=== PATIENT | male | born 1945 ===

== ENCOUNTER 2016-10-08 07:51 | Emergency (ER) | payer OTHER ==
[2016-10-08 07:51] VITALS: BMI 30.7
[2016-10-08 08:27] VITALS: RESP 20
[2016-10-08 08:51] LABS: BASO % 0.2 % (0.0-2.0); EOS % 0.4 % (0.0-4.0); HEMATOCRIT 38.3 % (35.0-51.0); LYMPH # 0.9 K/uL (1.0-4.3); LYMPH % 20.3 % (20.0-40.0); MEAN CORPUSCULAR HEMOGLOBIN 32.2 pg (27.0-31.0); MEAN CORPUSCULAR HGB CONC 33.9 g/dL (33.0-37.0); MEAN PLATELET VOLUME 7.3 fL (7.2-11.7); MONO # 0.4 K/uL (0.0-0.8); MONO % 8.1 % (0.0-10.0); RED CELL DISTRIBUTION WIDTH 12.8 % (11.5-14.5); WHITE BLOOD COUNT 4.4 K/uL (4.8-10.8)
[2016-10-08 08:54] LABS: RBC URINE 9 /hpf (0-3); URINE BILIRUBIN NEGATIVE (NEGATIVE); URINE BLOOD 2+ (NEGATIVE); URINE COLOR Yellow (YELLOW); URINE GLUCOSE (UA) NORMAL (Normal); URINE KETONE NEGATIVE (NEGATIVE); URINE LEUKOCYTE ESTERASE TRACE Leu/uL (Negative); URINE PROTEIN NEGATIVE (NEGATIVE); URINE UROBILINOGEN NORMAL mg/dL (0.2-1.0); WBC URINE 6 /hpf (0-5)
[2016-10-08 08:58] LABS: CHLORIDE 102 mmol/L (98-107); POTASSIUM 3.3 mmol/L (3.6-5.2); SODIUM 139 mmol/L (132-148)
[2016-10-08 09:00] LABS: CARBON DIOXIDE 24 mmol/L (22-30); GFR AFRICAN-AMERICAN > 60
--- NOTE | 2016-10-08 09:00 | C.PDOC ---
Time Seen by Provider: 10/08/16 08:19 Chief Complaint (Nursing): Chest Pain Past Medical History Vital Signs: Last Vital Signs Temp 98 F 10/08/16 07:58 Pulse 71 10/08/16 08:45 Resp 20 10/08/16 08:45 BP 129/81 10/08/16 08:45 Pulse Ox 98 10/08/16 08:45 - Medical History PMH: Anemia, Back Problems, Depression, Gastritis, Hypercholesterolemia, Pancreatitis Denies: Chronic Kidney Disease Surgical History: Back Surgery - [facility] Procedures VACCINATION NEC (08/17/14) Family History: States: Unknown Family Hx - Social History Hx Tobacco Use: No Hx Alcohol Use: No Hx Substance Use: No - Immunization History Hx Tetanus Toxoid Vaccination: Yes Hx Influenza Vaccination: Yes (2015) Hx Pneumococcal Vaccination: No ED Course And Treatment - Laboratory Results Result Diagrams: 10/08/16 08:44 10/08/16 08:44 O2 Sat by Pulse Oximetry: 98 Medical Decision Making Medical Decision Making: Impression: 71 y.o male with right sided chest pain, h/o PE Plan: * Labs * EKG * CT Chest Progress:
[2016-10-08 09:01] LABS: ALB/GLOB RATIO 1.5 (1.0-2.1); ALKALINE PHOSPHATASE 77 U/L (38-126); ALT/SGPT 21 U/L (21-72); AST/SGOT 16 U/L (17-59); BLOOD UREA NITROGEN 13 mg/dL (9-20); CALCIUM 7.6 mg/dl (8.6-10.4); GLUCOSE,RANDOM 100 mg/dL (75-110); TOTAL PROTEIN 6.7 g/dL (6.3-8.3)
--- NOTE | 2016-10-08 09:01 | C.PDOC ---
History Of Present Illness 71-year-old male, PMHx includes Pulmonary Embolism (04/2016), presents to the emergency department with complaints of chest pain. Patient states he has been experiencing right-sided chest pain x2 weeks. Pain is intermittent in nature and non-radiating, described as a "pressure-like" sensation. Patient states he was seen by his PMD, who sent patient for a CT scan, but pt did not follow-up. He denies shortness of breath, nausea/vomiting, dizziness, fevers, chills, arm pain, numbness/weakness, or any other associated symptoms. No other complaints at this time. PMD Vivek Jin MD. Time Seen by Provider: 10/08/16 08:19 Chief Complaint (Nursing): Chest Pain History Per: Patient History/Exam Limitations: no limitations Onset/Duration Of Symptoms: Days Current Symptoms Are (Timing): Still Present Severity: Moderate Quality: Pressure Past Medical History Reviewed: Historical Data, Nursing Documentation, Vital Signs Vital Signs: Last Vital Signs Temp 97.7 F 10/08/16 11:58 Pulse 76 10/08/16 11:58 Resp 20 10/08/16 11:58 BP 138/74 10/08/16 11:58 Pulse Ox 98 10/08/16 19:05 - Medical History PMH: Anemia, Back Problems, Depression, Gastritis, Hypercholesterolemia, Pancreatitis Denies: Chronic Kidney Disease Surgical History: Back Surgery - [facility] Procedures VACCINATION NEC (08/17/14) Family History: States: No Known Family Hx - Social History Hx Tobacco Use: No Hx Alcohol Use: No Hx Substance Use: No - Immunization History Hx Tetanus Toxoid Vaccination: Yes Hx Influenza Vaccination: Yes (2015) Hx Pneumococcal Vaccination: No Review Of Systems Except As Marked, All Systems Reviewed And Found Negative. Constitutional: Negative for: Fever, Chills Cardiovascular: Positive for: Chest Pain. Negative for: Palpitations Respiratory: Negative for: Shortness of Breath Gastrointestinal: Negative for: Nausea, Vomiting Musculoskeletal: Negative for: Neck Pain, Arm Pain, Back Pain Neurological: Negative for: Weakness, Numbness Physical Exam - Physical Exam Appears: Non-toxic, No Acute Distress Skin: Warm, Dry, No Rash Head: Atraumatic, Normacephalic Eye(s): bilateral: Normal Inspection, PERRL, EOMI Nose: Normal Oral Mucosa: Moist Lips: Normal Appearing Neck: Normal ROM Chest: Symmetrical Cardiovascular: Rhythm Regular, No Murmur Respiratory: Normal Breath Sounds, No Accessory Muscle Use Extremity: Bilateral: Atraumatic, No Pedal Edema, Normal Color And Temperature, Normal ROM Neurological/Psych: Oriented x3, Normal Speech ED Course And Treatment - Laboratory Results Result Diagrams: 10/08/16 08:44 10/08/16 08:44 Lab Interpretation: No Acute Changes ECG: Interpreted By Me, Viewed By Me ECG Rhythm: Sinus Rhythm ECG Interpretation: No Acute Changes Rate From EC O2 Sat by Pulse Oximetry: 98 (on Room Air) - CT Scan/US CT HEAD Other Rad Studies (CT/US): Read By Radiologist, Radiology Report Reviewed CT/US Interpretation: Accession No. : [id number]. Patient Name / ID : LORRI MELENDEZ / [id number]. Exam Date : 10/08/2016 10:02:19 ( Approved ). Study Comment : Sex / Age : M / 71Y. Creator : González Barraza. Dictator : González Barraza. Chemical Engineering Technologist : [employer] Head : González Barraza. Approver2 : Report Date : 10/08 11:11:57. My Comment : . PROCEDURE: CT Chest with contrast ( Pulmonary Angiogram). HISTORY: right sided chest pain,sob. COMPARISON: 05/12. TECHNIQUE: Axial computed tomography images were obtained of the chest in the pulmonary arterial phase of enhancement. Coronal and sagittal reformatted images were created and reviewed. Intravenous contrast dose: 100 cc visipaque. Radiation dose: Total exam DLP = 505 mGy-cm. This CT exam was performed using one or more of the following dose reduction techniques: Automated exposure control, adjustment of the mA and/or kV according to patient size, and/or use of iterative reconstruction technique. FINDINGS: PULMONARY ARTERIES: There appears to be resolution of previously identified small peripheral subsegmental pulmonary emboli from the prior examination. No appreciable new central pulmonary artery thrombus is noted. There is some mild artifact identified in the left lower lobe, although note appreciable peripheral or subsegmental pulmonary artery thrombus is noted. AORTA: No interval change from prior examination. LUNGS: No new pulmonary infiltrate is seen. Mild subsegmental atelectasis and scarring is once again identified. No appreciable lung nodule is noted. PLEURAL SPACES: Unremarkable. No effusion or pneuomothorax. HEART: Unremarkable. No cardiomegaly. No significant pericardial effusion. LYMPH NODES: No lymphadenopathy. BONES, CHEST WALL: Stable. No new compression fracture is noted. OTHER FINDINGS: Images of the upper abdomen are also unchanged with stable small low-density cyst seen in the liver. Visualized esophagus is unremarkable. Visualized stomach, duodenum, pancreas, and adrenal glands are within normal limits, as well as the kidneys. IMPRESSION: No CT scan evidence of pulmonary embolism with resolution of previously identified small subsegmental peripheral pulmonary emboli. No new infiltrate seen. Medical Decision Making Medical Decision Making: Impression: 71y/o M, PMHx of PE, comes in w/ right chest pain x2 weeks Prior records reviewed, patient was admitted on 05/12/[address] Chest showed small peripheral pulmonary emboli more prominent on the right side, mild cardiomegaly, no evidence of acute pulmonary disease otherwise Plan: * CT Chest * EKG * BNP, CMP, Trop I * CBC, D-Dimer, PTT/PT * Urinalysis Dr Jin paged at 1120 Progress: Reassess: Labs reviewed. CT chest angio showed no PE. [address] Jin who states with negative CT angio, patient can be discharged and follow up in office. Patient remained afebrile and hemodynamically stable during ED evaluation. Discussed results and plan for discharge and follow up instructions. Disposition - Disposition Referrals: Vivek Jin MD [Medical Doctor] - Disposition: HOME/ ROUTINE Disposition Time: 12:00 Condition: STABLE Additional Instructions: Seguimiento con dyer mdico de ambar Jin en la oficina la prxima semana ms evaluacin. Contine tomando allan medicamentos usuales. Regrese al servicio de urgencias en cualquier momento si los sntomas persisten o empeoran. Instructions: Chest Pain (ED) Print Language: ITALIAN - POA Present On Arrival: None - Clinical Impression Clinical Impression: Pleuritic pain - Scribe Statement The provider has reviewed the documentation as recorded by the Scribe (Izzy Mcnally) All medical record entries made by the Scribe were at my direction and personally dictated by me. I have reviewed the chart and agree that the record accurately reflects my personal performance of the history, physical exam, medical decision making, and the department course for this patient. I have also personally directed, reviewed, and agree with the discharge instructions and disposition.
[2016-10-08 09:20] LABS: INR 1.8
[2016-10-08] MEDS ORDERED: Iodixanol 320 mg/ml 150 ml Bottle IV ONE (09:30)
--- NOTE | 2016-10-08 11:13 | CT ---
PROCEDURE: CT Chest with contrast (Pulmonary Angiogram) HISTORY: right sided chest pain,sob COMPARISON: 05/12/2016 TECHNIQUE: Axial computed tomography images were obtained of the chest in the pulmonary arterial phase of enhancement. Coronal and sagittal reformatted images were created and reviewed. Intravenous contrast dose: 100 cc visipaque. Radiation dose: Total exam DLP = 505 mGy-cm. This CT exam was performed using one or more of the following dose reduction techniques: Automated exposure control, adjustment of the mA and/or kV according to patient size, and/or use of iterative reconstruction technique. FINDINGS: PULMONARY ARTERIES: There appears to be resolution of previously identified small peripheral subsegmental pulmonary emboli from the prior examination. No appreciable new central pulmonary artery thrombus is noted. There is some mild artifact identified in the left lower lobe, although note appreciable peripheral or subsegmental pulmonary artery thrombus is noted. AORTA: No interval change from prior examination LUNGS: No new pulmonary infiltrate is seen. Mild subsegmental atelectasis and scarring is once again identified. No appreciable lung nodule is noted. PLEURAL SPACES: Unremarkable. No effusion or pneuomothorax. HEART: Unremarkable. No cardiomegaly. No significant pericardial effusion. LYMPH NODES: No lymphadenopathy. BONES, CHEST WALL: Stable. No new compression fracture is noted. OTHER FINDINGS: Images of the upper abdomen are also unchanged with stable small low-density cyst seen in the liver. Visualized esophagus is unremarkable. Visualized stomach, duodenum, pancreas, and adrenal glands are within normal limits, as well as the kidneys. IMPRESSION: No CT scan evidence of pulmonary embolism with resolution of previously identified small subsegmental peripheral pulmonary emboli. No new infiltrate seen.
[2016-10-08 11:59] VITALS: BP 138/74; PULSE 76; TEMP 97.7
[2016-10-08 19:05] VITALS: O2SAT 98
== END 2016-10-08 12:03 | disposition home or self-care (01) ==
LOC: C.ER 07:51
DX: R07.81 Pleurodynia (principal); E78.00 Pure hypercholesterolemia, unspecified
CPT/HCPCS: 71275; 80053; 81001; 83880; 84484; 85025; 85378; 85610; 85730; 99285; Q9965

== ENCOUNTER 2016-10-27 13:45 | Inpatient (IN) | payer OTHER ==
[2016-10-27 13:45] VITALS: BMI 30.7
[2016-10-27] MEDS ORDERED: Sodium Chloride 0.9% 1,000 ML IV ONE (13:58)
[2016-10-27] MEDS ORDERED: Sodium Chloride 0.9% 1,000 ML ONE (14:11)
[2016-10-27 14:20] LABS: MONO # 0.2 K/uL (0.0-0.8); NEUT # 3.1 K/uL (1.8-7.0); RBC 3.8 Mil/uL (4.40-5.90)
--- NOTE | 2016-10-27 14:22 | C.PDOC ---
History Of Present Illness 71 year old male presents to the ED with complaints of "room-spinning" dizziness x 1 week. Notes it is exacerbated by movement and sitting up. No trauma. No SOB. No chest pain. No h/o vertigo. Patient denies any nausea, vomiting, fever, or headache. COmplaint with chronic medication, no new medication. Time Seen by Provider: 10/27/16 13:51 Chief Complaint (Nursing): Dizziness/Lightheaded History Per: Patient History/Exam Limitations: clinical condition Onset/Duration Of Symptoms: Days Current Symptoms Are (Timing): Still Present Activity At Onset Of Symptoms: Walking, Other (when sitting up ) Fall Associated With With Symptoms: No Recent travel outside of the [place]: No Past Medical History Reviewed: Historical Data, Nursing Documentation, Vital Signs Vital Signs: Last Vital Signs Temp 98.2 F 10/27/16 13:53 Pulse 64 10/27/16 17:30 Resp 12 10/27/16 17:30 BP 125/79 10/27/16 17:30 Pulse Ox 97 10/27/16 17:40 - Medical History PMH: Anemia, Back Problems, Depression, Gastritis, Hypercholesterolemia, Pancreatitis Surgical History: Back Surgery - [facility] Procedures VACCINATION NEC (08/17/14) Family History: States: Unknown Family Hx - Social History Hx Tobacco Use: No Hx Alcohol Use: No Hx Substance Use: No - Immunization History Hx Tetanus Toxoid Vaccination: Yes Hx Influenza Vaccination: Yes (2016) Hx Pneumococcal Vaccination: No Review Of Systems Constitutional: Negative for: Fever, Chills Cardiovascular: Negative for: Chest Pain, Palpitations Gastrointestinal: Positive for: Abdominal Pain. Negative for: Nausea, Vomiting , Diarrhea Neurological: Positive for: Dizziness Physical Exam - Physical Exam Appears: Non-toxic, No Acute Distress Skin: Warm, Dry Head: Atraumatic, Normacephalic Eye(s): bilateral: Normal Inspection, PERRL, EOMI, Other (no nystagmus) Nose: Normal Oral Mucosa: Moist Neck: Normal ROM, Supple Chest: Symmetrical, No Deformity Cardiovascular: Rhythm Regular Respiratory: Normal Breath Sounds, No Rhonchi, No Wheezing Gastrointestinal/Abdominal: Soft, No Tenderness, No Distention, No Guarding, No Rebound Extremity: Normal ROM, No Tenderness, No Pedal Edema Neurological/Psych: Oriented x3, Normal Speech, Normal Cognition, Normal Cranial Nerves, Normal Motor, Normal Sensation, Other (no focal deficits) Gait: Steady ED Course And Treatment - Laboratory Results Result Diagrams: 10/27/16 14:06 10/27/16 14:06 ECG: Interpreted By Me, Viewed By Me ECG Rhythm: Sinus Rhythm ECG Interpretation: No Acute Changes Rate From EC (bpm) O2 Sat by Pulse Oximetry: 97 (room air ) Pulse Ox Interpretation: Normal - CT Scan/US Head CT Other Rad Studies (CT/US): Read By Radiologist, Radiology Report Reviewed CT/US Interpretation: FINDINGS: HEMORRHAGE: No intracranial hemorrhage. BRAIN : No mass effect or edema. Scattered focal lucencies in the subcortical and periventricular white matter suggestive for chronic microvascular ischemic change. Punctate left basal ganglia calcification. Mild patchy low attenuation within the anterior right temporal lobe, nonspecific, possibly representing chronic microvascular ischemic change. Clinical correlation. VENTRICLES: Unremarkable. No hydrocephalus. CALVARIUM: Unremarkable. PARANASAL SINUSES: Unremarkable as visualized. No significant inflammatory changes. MASTOID AIR CELLS: Unremarkable as visualized. No inflammatory changes. OTHER FINDINGS: None. IMPRESSION: Chronic microvascular ischemic change. Question mild patchy low attenuation within the anterior right temporal lobe, nonspecific, possibly representing chronic microvascular ischemic change. Clinical correlation. If focal neurologic deficit persists, consider MRI. Progress Note: Patient was given IV fluids and antivert. On re-evaluation, pt ntoes dizziness persists. Notes he drank coffee with two crackers today, no breakfast or lunch.Pt noted to be orthostatic. CAse discussed with Dr Rodriguez, agreed upon admission . Reevaluation Time: 15:02 Reassessment Condition: Improved Disposition - Disposition Disposition: HOME/ ROUTINE Disposition Time: 16:00 Condition: STABLE - Clinical Impression Clinical Impression: Dizziness - Scribe Statement The provider has reviewed the documentation as recorded by the Scribe Maureen Abernathy All medical record entries made by the Getibconnie were at my direction and personally dictated by me. I have reviewed the chart and agree that the record accurately reflects my personal performance of the history, physical exam, medical decision making, and the department course for this patient. I have also personally directed, reviewed, and agree with the discharge instructions and disposition.
[2016-10-27 14:24] LABS: BASO % 1.1 % (0.0-2.0); EOS % 0.2 % (0.0-4.0); HEMOGLOBIN 12.3 g/dL (12.0-18.0); LYMPH # 0.5 K/uL (1.0-4.3); LYMPH % 12.1 % (20.0-40.0); MEAN CELL VOLUME 95.1 fL (80.0-94.0); MEAN CORPUSCULAR HEMOGLOBIN 32.3 pg (27.0-31.0); MEAN CORPUSCULAR HGB CONC 33.9 g/dL (33.0-37.0); MEAN PLATELET VOLUME 7.3 fL (7.2-11.7); MONO % 5.6 % (0.0-10.0); NRBC % 0.1 % (0.0-2.0); RED CELL DISTRIBUTION WIDTH 12.7 % (11.5-14.5); WHITE BLOOD COUNT 3.8 K/uL (4.8-10.8)
[2016-10-27 14:27] LABS: ALBUMIN 3.7 g/dL (3.5-5.0)
[2016-10-27 14:30] LABS: ALB/GLOB RATIO 1.2 (1.0-2.1); ALT/SGPT 29 U/L (21-72); AST/SGOT 23 U/L (17-59); BLOOD UREA NITROGEN 13 mg/dL (9-20); GFR AFRICAN-AMERICAN > 60; GFR NON-AFRICAN AMERICAN > 60
[2016-10-27 14:31] LABS: CALCIUM 8.8 mg/dl (8.6-10.4)
[2016-10-27 14:38] LABS: CK-MB 0.75 ng/mL (0.0-3.38)
--- NOTE | 2016-10-27 14:56 | CT ---
PROCEDURE: CT HEAD WITHOUT CONTRAST. HISTORY: R/O Bleed. Headache. COMPARISON: None available. TECHNIQUE: Axial computed tomography images were obtained through the head/brain without intravenous contrast. Radiation dose: Total exam DLP = 904 mGy-cm. This CT exam was performed using one or more of the following dose reduction techniques: Automated exposure control, adjustment of the mA and/or kV according to patient size, and/or use of iterative reconstruction technique. FINDINGS: HEMORRHAGE: No intracranial hemorrhage. BRAIN: No mass effect or edema. Scattered focal lucencies in the subcortical and periventricular white matter suggestive for chronic microvascular ischemic change. Punctate left basal ganglia calcification. Mild patchy low attenuation within the anterior right temporal lobe, nonspecific, possibly representing chronic microvascular ischemic change. Clinical correlation. VENTRICLES: Unremarkable. No hydrocephalus. CALVARIUM: Unremarkable. PARANASAL SINUSES: Unremarkable as visualized. No significant inflammatory changes. MASTOID AIR CELLS: Unremarkable as visualized. No inflammatory changes. OTHER FINDINGS: None. IMPRESSION: Chronic microvascular ischemic change. Question mild patchy low attenuation within the anterior right temporal lobe, nonspecific, possibly representing chronic microvascular ischemic change. Clinical correlation. If focal neurologic deficit persists, consider MRI.
[2016-10-27 16:11] LABS: URINE BILIRUBIN NEGATIVE (NEGATIVE); URINE BLOOD 1+ (NEGATIVE); URINE CLARITY Clear (Clear); URINE COLOR Straw (YELLOW); URINE GLUCOSE (UA) NORMAL (Normal); URINE LEUKOCYTE ESTERASE NEG Leu/uL (Negative); URINE NITRATE NEGATIVE (NEGATIVE); URINE PROTEIN NEGATIVE (NEGATIVE); URINE UROBILINOGEN NORMAL mg/dL (0.2-1.0)
--- NOTE | 2016-10-27 16:26 | RAD ---
PROCEDURE: CHEST RADIOGRAPH, 1 VIEW HISTORY: Shortness of breath COMPARISON: None available. FINDINGS: LUNGS: Mild venous congestion. Right hilar prominence. Mild patchy bibasilar airspace opacities. Biapical pleural thickening with upper lobe granulomatous changes. PLEURA: No pneumothorax or pleural fluid seen. CARDIOVASCULAR: Normal. OSSEOUS STRUCTURES: Degenerative changes in the spine and shoulders. VISUALIZED UPPER ABDOMEN: Normal. OTHER FINDINGS: None. IMPRESSION: Mild venous congestion. Right hilar prominence. Mild patchy bibasilar airspace opacities. Biapical pleural thickening with upper lobe granulomatous changes.
--- NOTE | 2016-10-27 21:03 | CP.PCM.HP ---
Past Patient History - Infectious Disease Hx of Infectious Diseases: None - Tetanus Immunizations Tetanus Immunization: Unknown - Past Medical History & Family History Past Medical History?: Yes - Past Social History Smoking Status: Never Smoked - CARDIAC Hx Cardiac Disorders: Yes Hx Hypercholesterolemia: Yes - PULMONARY Hx Respiratory Disorders: No - NEUROLOGICAL Hx Neurological Disorder: No - HEENT Hx HEENT Problems: No - RENAL Hx Chronic Kidney Disease: No - ENDOCRINE/METABOLIC Hx Endocrine Disorders: No - HEMATOLOGICAL/ONCOLOGICAL Hx Anemia: Yes - INTEGUMENTARY Hx Dermatological Problems: Yes Other/Comment: coagulopathy - MUSCULOSKELETAL/RHEUMATOLOGICAL Hx Musculoskeletal Disorders: Yes Hx Falls: No Other/Comment: bilateral foot surgery/degenerative joint disease. - GASTROINTESTINAL Hx Gastrointestinal Disorders: Yes Hx Gastritis: Yes Hx Pancreatitis: Yes - GENITOURINARY/GYNECOLOGICAL Hx Genitourinary Disorders: Yes Hx Prostate Problems: Yes - PSYCHIATRIC Hx Psychophysiologic Disorder: Yes Hx Depression: Yes Hx Substance Use: No - SURGICAL HISTORY Hx Surgeries: Yes Other/Comment: bilateral foot - ANESTHESIA Hx Anesthesia: Yes Hx Anesthesia Reactions: No Hx Malignant Hyperthermia: No Meds Home Medications: Home Medication List Medication Instructions Recorded Confirmed Type Meclizine [Meclizine*] 25 mg PO BID #14 tab 10/27/16 Rx Allergies/Adverse Reactions: Allergies Allergy/AdvReac Type Severity Reaction Status Date / Time No Known Allergies Allergy Verified 10/27/16 13:50 Physical Exam - Constitutional Appears: Well - Head Exam Head Exam: ATRAUMATIC, NORMAL INSPECTION, NORMOCEPHALIC - Eye Exam Eye Exam: EOMI, Normal appearance, PERRL Pupil Exam: NORMAL ACCOMODATION, PERRL - ENT Exam ENT Exam: Mucous Membranes Moist, Normal Exam - Neck Exam Neck exam: Positive for: Normal Inspection - Respiratory Exam Respiratory Exam: Decreased Breath Sounds - Cardiovascular Exam Cardiovascular Exam: REGULAR RHYTHM, +S1, +S2 - GI/Abdominal Exam GI & Abdominal Exam: Diminished Bowel Sounds, Soft - Rectal Exam Rectal Exam: Deferred Results - Vital Signs Recent Vital Signs: Last Vital Signs Temp 98.2 F 10/27/16 18:55 Pulse 71 10/27/16 18:58 Resp 16 10/27/16 18:55 BP 156/83 H 10/27/16 18:55 Pulse Ox 99 10/27/16 18:55 - Labs Result Diagrams: 10/27/16 14:06 07/09/17 14:06 Labs: Laboratory Results - last 24 hr 10/27/16 16:00 Urine Color Straw Urine Clarity Clear Urine pH 7.0 Ur Specific [place] 1.006 Urine Protein Negative Urine Glucose (UA) Normal Urine Ketones Negative Urine Blood 1+ H Urine Nitrate Negative Urine Bilirubin Negative Urine Urobilinogen Normal Ur Leukocyte Esterase Neg Urine WBC (Auto) < 1 Urine RBC (Auto) 2
--- NOTE | 2016-10-28 00:54 | CP.PCM.CON ---
History of Present Illness - History of Present Illness History of Present Illness: Mr. Suarez is a 71-year-old male with past medical history significant for benign prostatic hypertrophy for which he has been followed by his urologist Dr. Gallagher and is on Flomax. Patient also has history of dyslipidemia along with pulmonary embolism which was diagnosed 6 months ago for which he has been on Xarelto. He has chronic right-sided chest pain since the diagnosis of pulmonary embolism along with dyspnea on exertion. At baseline he has NYHA functional class II dyspnea but has limited mobility secondary to issues with balance and had surgery of the feet. He now presents on this presentation with complaints of having difficulty with walking accompanied with dizziness and lightheadedness and not keeping track when he walks. Review of Systems - Constitutional Constitutional: Fatigue, Lethargy, Malaise - EENT Eyes: As Per HPI Ears: As Per HPI Nose/Mouth/Throat: As Per HPI - Cardiovascular Cardiovascular: Chest Pain with Activity, Dyspnea, Dyspnea on Exertion - Respiratory Respiratory: Dyspnea on Exertion - Genitourinary Genitourinary: Change in Urinary Stream, Difficulty Urinating, Urinary Frequency - Musculoskeletal Musculoskeletal: Abnormal Gait, Arthralgias - Neurological Neurological: Abnormal Gait, Dizziness, Lack of Coordination Past Patient History - Infectious Disease Hx of Infectious Diseases: None - Tetanus Immunizations Tetanus Immunization: Unknown - Past Medical History & Family History Past Medical History?: Yes - Past Social History Smoking Status: Never Smoked Chewing Tobacco Use: No Cigar Use: No Alcohol: Occasional Drugs: Denies Home Situation {Lives}: Alone - CARDIAC Hx Cardiac Disorders: Yes Hx Hypercholesterolemia: Yes - PULMONARY Hx Respiratory Disorders: No Other/Comment: Pulmonary embolism - NEUROLOGICAL Hx Neurological Disorder: No - HEENT Hx HEENT Problems: No - RENAL Hx Chronic Kidney Disease: No - ENDOCRINE/METABOLIC Hx Endocrine Disorders: No - HEMATOLOGICAL/ONCOLOGICAL Hx Anemia: Yes - INTEGUMENTARY Hx Dermatological Problems: Yes Other/Comment: coagulopathy - MUSCULOSKELETAL/RHEUMATOLOGICAL Hx Musculoskeletal Disorders: Yes Hx Falls: No Other/Comment: bilateral foot surgery/degenerative joint disease. - GASTROINTESTINAL Hx Gastrointestinal Disorders: Yes Hx Gastritis: Yes Hx Pancreatitis: Yes - GENITOURINARY/GYNECOLOGICAL Hx Genitourinary Disorders: Yes Hx Prostate Problems: Yes - PSYCHIATRIC Hx Psychophysiologic Disorder: Yes Hx Depression: Yes Hx Substance Use: No - SURGICAL HISTORY Hx Surgeries: Yes Other/Comment: bilateral foot - ANESTHESIA Hx Anesthesia: Yes Hx Anesthesia Reactions: No Hx Malignant Hyperthermia: No Meds Home Medications: Home Medication List Medication Instructions Recorded Confirmed Type Meclizine [Meclizine*] 25 mg PO BID #14 tab 10/27/16 Rx Allergies/Adverse Reactions: Allergies Allergy/AdvReac Type Severity Reaction Status Date / Time No Known Allergies Allergy Verified 10/27/16 13:50 - Medications Medications: Current Medications Aspirin (Ecotrin) 81 mg PO DAILY [facility] Famotidine (Pepcid) 40 mg PO DAILY [facility] Ferrous Sulfate (Feosol) 325 mg PO DAILY [facility] Rivaroxaban (Xarelto) 20 mg PO DAILY [facility] Rosuvastatin Calcium (Crestor) 10 mg PO HS [facility] Last Admin: 10/27/16 22:15 Dose: 10 mg Tamsulosin HCl (Flomax) 0.4 mg PO DAILY [facility] Physical Exam - Constitutional Appears: Well, No Acute Distress - Head Exam Head Exam: ATRAUMATIC, NORMAL INSPECTION, NORMOCEPHALIC - Eye Exam Eye Exam: EOMI, Normal appearance, PERRL Pupil Exam: NORMAL ACCOMODATION, PERRL - ENT Exam ENT Exam: Mucous Membranes Moist, Normal Exam - Neck Exam Neck exam: Positive for: Normal Inspection - Respiratory Exam Respiratory Exam: Clear to Auscultation Bilateral, NORMAL BREATHING PATTERN - Cardiovascular Exam Cardiovascular Exam: REGULAR RHYTHM, +S1, +S2, Systolic Murmur - GI/Abdominal Exam GI & Abdominal Exam: Normal Bowel Sounds, Soft - Rectal Exam Rectal Exam: Deferred - Extremities Exam Extremities exam: Positive for: normal inspection - Back Exam Back exam: NORMAL INSPECTION - Neurological Exam Neurological exam: Abnormal Gait, Alert, CN II-XII Intact, Oriented x3 - Psychiatric Exam Psychiatric exam: Normal Affect, Normal Mood - Skin Skin Exam: Intact, Normal Color Results - Vital Signs Recent Vital Signs: Last Vital Signs Temp 98.2 F 10/27/16 18:55 Pulse 71 10/27/16 18:58 Resp 16 10/27/16 18:55 BP 156/83 H 10/27/16 18:55 Pulse Ox 99 10/27/16 18:55 - Labs Result Diagrams: 10/27/16 14:06 10/27/16 14:06 Labs: Laboratory Results - last 24 hr 10/27/16 16:00 Urine Color Straw Urine Clarity Clear Urine pH 7.0 Ur Specific Dewitt 1.006 Urine Protein Negative Urine Glucose (UA) Normal Urine Ketones Negative Urine Blood 1+ H Urine Nitrate Negative Urine Bilirubin Negative Urine Urobilinogen Normal Ur Leukocyte Esterase Neg Urine WBC (Auto) < 1 Urine RBC (Auto) 2 Assessment & Plan (1) Dizziness Assessment and Plan: Etiology of dizziness question secondary to underlying acute CVA in the posterior circulation. Will need MRI of the brain to rule out any acute CVA. Will check carotid duplex and echocardiogram. Continue to monitor patient on telemetry for 24 hours. Keep the patient on aspirin and statins. Status: Acute (2) Chest pain Assessment and Plan: Chest pain most likely pleuritic in nature from prior pulmonary embolism. Patient is 71-year-old male with hyperlipidemia cannot exclude underlying CAD. Does have dyspnea on exertion at baseline. Will review echocardiogram. Will need further ischemic evaluation which can be done as outpatient. Continue to rule out ACS with serial enzymes and monitor patient on telemetry keep the patient on aspirin and statins. Status: Acute (3) Pulmonary embolism Assessment and Plan: History of pulmonary embolism 6 months ago. Etiology unclear will need workup for secondary causes. Continue the patient on Xarelto for the time being. May consider evaluation with GI for rule out underlying malignancy as the etiology of his pulmonary embolism. Status: Acute (4) Dyslipidemia Assessment and Plan: Would recommend to check fasting lipid profile. Continue patient on statin therapy. Further titration based on the results of the fasting lipid profile. Status: Acute
--- NOTE | 2016-10-28 07:44 | PCM.URO ---
Urology Progress Note - Objective Lab Results Last 24 Hours: Laboratory Results - last 24 hr 10/27/16 16:00 Urine Color Straw Urine Clarity Clear Urine pH 7.0 Ur Specific Dalton 1.006 Urine Protein Negative Urine Glucose (UA) Normal Urine Ketones Negative Urine Blood 1+ H Urine Nitrate Negative Urine Bilirubin Negative Urine Urobilinogen Normal Ur Leukocyte Esterase Neg Urine WBC (Auto) < 1 Urine RBC (Auto) 2 Intake & Output: Intake & Output 10/27/16 10/28/16 10/28/16 18:59 06:59 18:59 Intake Total 240 Balance 240 Intake: Oral 240 Other: Voiding Method Toilet # Voids Urine, Voided 1 Vital Signs: Vital Signs - 24 hr 10/27/16 10/27/16 10/27/16 17:30 18:16 18:23 Temperature 98.1 F Pulse Rate 64 83 Pulse Rate [ Bilateral * Pedal & Posterior Tibial] Respiratory 12 20 Rate Blood Pressure 125/79 140/77 O2 Sat by Pulse 98 97 99 Oximetry 10/27/16 10/27/16 10/27/16 18:55 18:58 23:25 Temperature 98.2 F 98.3 F Pulse Rate 71 52 L Pulse Rate [ 71 Bilateral * Pedal & Posterior Tibial] Respiratory 16 20 Rate Blood Pressure 156/83 H 127/73 O2 Sat by Pulse 99 97 Oximetry 10/28/16 10/28/16 01:00 04:00 Temperature Pulse Rate 53 L 54 L Pulse Rate [ Bilateral * Pedal & Posterior Tibial] Respiratory Rate Blood Pressure O2 Sat by Pulse Oximetry
[2016-10-28 10:46] LABS: HEMOGLOBIN 12.4 g/dL (12.0-18.0); MEAN CELL VOLUME 96.3 fL (80.0-94.0); MEAN CORPUSCULAR HEMOGLOBIN 32.2 pg (27.0-31.0); MEAN CORPUSCULAR HGB CONC 33.4 g/dL (33.0-37.0); RBC 3.86 Mil/uL (4.40-5.90); RED CELL DISTRIBUTION WIDTH 12.5 % (11.5-14.5); WHITE BLOOD COUNT 4.1 K/uL (4.8-10.8)
[2016-10-28 10:56] LABS: BLOOD UREA NITROGEN 10 mg/dL (9-20); GFR AFRICAN-AMERICAN > 60; GFR NON-AFRICAN AMERICAN > 60
[2016-10-28 10:57] LABS: CALCIUM 8.7 mg/dl (8.6-10.4); HDL CHOLESTEROL 43 mg/dL (30-70); MAGNESIUM 2.1 mg/dL (1.6-2.3)
[2016-10-28 11:08] LABS: CK-MB 0.43 ng/mL (0.0-3.38); LDL CHOLESTEROL 96 mg/dL (0-129)
--- NOTE | 2016-10-28 14:41 | CP.PCM.PN ---
Subjective - Date & Time of Evaluation Date of Evaluation: 10/28/16 Time of Evaluation: 14:33 - Subjective Subjective: PGY2 progress note for Dr. Rodriguez Pt is seen and examined at bedside. No acute events overnight. Patient denies having any dizziness, CP, SOB, abd pain, N/V/D/C. Patient states that he is ambulating to bathroom without difficulty and without getting dizzy. 12 point ROS are negative except for the above mentioned. Objective - Vital Signs/Intake and Output Vital Signs (last 24 hours): Temp Pulse Resp BP Pulse Ox 97.6 F 96 H 18 129/74 99 10/28/16 09:11 10/28/16 12:00 10/28/16 09:11 10/28/16 09:11 10/28/16 09:11 Intake and Output: 10/28/16 10/28/16 06:59 18:59 Intake Total 240 Balance 240 - Medications Medications: Current Medications Aspirin (Ecotrin) 81 mg PO DAILY [facility] Last Admin: 10/28/16 10:26 Dose: 81 mg Famotidine (Pepcid) 40 mg PO DAILY [facility] Last Admin: 10/28/16 10:26 Dose: 40 mg Ferrous Sulfate (Feosol) 325 mg PO DAILY [facility] Last Admin: 10/28/16 10:26 Dose: 325 mg Rivaroxaban (Xarelto) 20 mg PO DAILY [facility] Last Admin: 10/28/16 10:26 Dose: 20 mg Rosuvastatin Calcium (Crestor) 10 mg PO HS [facility] Last Admin: 10/27/16 22:15 Dose: 10 mg Tamsulosin HCl (Flomax) 0.4 mg PO DAILY [facility] Last Admin: 10/28/16 10:26 Dose: 0.4 mg - Labs Labs: 10/28/16 10:42 10/28/16 10:42 - Constitutional Appears: Non-toxic, No Acute Distress - Head Exam Head Exam: ATRAUMATIC - ENT Exam ENT Exam: Mucous Membranes Moist - Respiratory Exam Respiratory Exam: Clear to Ausculation Bilateral. absent: Accessory Muscle Use , Rhonchi, Wheezes, Respiratory Distress - Cardiovascular Exam Cardiovascular Exam: REGULAR RHYTHM, +S1, +S2. absent: Gallop, Rubs, Murmur - GI/Abdominal Exam GI & Abdominal Exam: Soft, Normal Bowel Sounds. absent: Distended, Firm, Guarding, Rigid, Tenderness, Organomegaly - Extremities Exam Extremities Exam: absent: Pedal Edema, Tenderness - Neurological Exam Neurological Exam: Alert, Awake, Oriented x3 - Psychiatric Exam Psychiatric exam: Normal Affect, Normal Mood - Skin Skin Exam: Dry, Intact, Normal Color, Warm Assessment and Plan - Assessment and Plan (Free Text) Assessment: 71 year old male with past medical history of BPH on flomax, HLD, PE diagnosed 6 months ago on Xeralto is admitted for vertigo ("room spinning sensation"). CT of head on admission was negative. Blood work on admission was overall normal. Dizziness - Neurology, Dr. Loco is consulted. Recommend MRI of brain - MRI of brain is done, results are pending - Carotid US and echo done, results pending. Preliminary echo result showed EF of 76% - Physical therapy consulted HLD - Continue Crestor 10 mg po HS History of PE - Continue Xeralto 20 mg po HS BPH -Continue Flomax -Urologist, Dr. Gallagher is consulted Case discussed with attending, Dr. Rodriguez
--- NOTE | 2016-10-28 15:37 | MRI ---
PROCEDURE: MRI BRAIN WITHOUT CONTRAST HISTORY: vertigo COMPARISON: Comparison made with prior CT scan of the brain dated 10/27/2016 TECHNIQUE: Multiplanar, multisequence MR images of the brain were obtained without intravenous contrast enhancement. FINDINGS: HEMORRHAGE: No acute parenchymal, subarachnoid or extra-axial hemorrhage. No evidence of hemosiderin deposition identified on gradient echo weighted sequence. DWI: No evidence of an acute or early subacute infarction seen on diffusion imaging. BRAIN PARENCHYMA: Mild diffuse/ confluent chronic white matter ischemic changes seen extending peripherally into the deep and subcortical white matter both cerebral hemispheres. Multiple more discrete chronic appearing lacunar type infarcts scattered about the deep and subcortical white matter of both cerebral hemispheres and to a lesser degree both basal nuclei. Moderate generalized volume loss. VENTRICLES: No obstructive type hydrocephalus. CRANIUM: No gross calvarial abnormalities. ORBITS: Orbits and contents appear grossly unremarkable. PARANASAL SINUSES/MASTOIDS: Visualized paranasal sinuses well-developed. Minor mucosal thickening left maxillary sinus. VASCULAR SYSTEM: Visualized major vascular flow voids skull base are patent. OTHER FINDINGS: None. IMPRESSION: No acute intracranial hemorrhage or infarct. Mild chronic appearing white matter and basal nuclei ischemic changes. Mild generalized volume loss.
--- NOTE | 2016-10-28 16:20 | CP.PCM.CON ---
History of Present Illness - History of Present Illness History of Present Illness: NEURO CONSULT NOTE: 10/28/16 CHIEF COMPLAINT: DIZZINESS HPI: THIS IS A 71 YEAR OLD MAN WITH HISTORY HTN, HLD, PE ON XERALTO, BPH WHO PRESENTED WITH INTERMITTENT DIZZINESS IN TERMS OF SPINNING SENSATION OF THE ROOM WITHOUT NAUSEA. HE FELT UNBALANCED ON HIS FEET. MRI BRAIN SHOWED NO ACUTE INTRACRANIAL ABNORMALITY. NO FOCAL WEAKNESS IN THE EXTREMITIES. NO CHANGE IN SENSE OF VISION, TASTE OR SMELL. ROS: 14 POINT REVIEW OF SYMPTOMS IS NEGATIVE PER HPI. ALLERGIES: NONE SOCIAL HISTORY: NO ILLICIT DRUG USE, SMOKING, OR ETOH USE. FAMILY: NON CONTRIBUTORY. MEDICATIONS: REVIEWED BY NURSE'S RECONCILIATION SHEET. PAST MEDICAL HISTORY: HTN, HLD, PE, BPH PHYSICAL EXAM: VITAL SIGNS: REVIEWED BY THE CHART GENERAL EXAM: PATIENT SEEN IN BED, IN NO ACUTE DISTRESS HEENT: PERRLA, EOMI, NECK SUPPLE, NO JVD, NO ADENOPATHY CVS: S1, S2, RRR, NO MURMURS NOTED LUNGS: CLEAR TO AUSCULTATION, NO ADVENTITIOUS SOUNDS ABDOMEN: SOFT AND NONTENDER EXTREMITIES: NO CLUBBING OR CYANOSIS. PP 2+ B/L NEURO: PT IS ALERT AND ORIENTED TO PERSON, PLACE, AND YEAR. , RECALL TO 5 MINUTES 3/3, SPEECH IS FLUENT WITHOUT ERRORS, CN II-XII INTACT, MOTOR EXAM: NORMAL TONE, NORMAL BULK OF MUSCLE, MOVES ALL EXTREMITIES EQUALLY, NO PRONATOR DRIFT SEEN. SENSORY EXAM: LIGHT TOUCH, PIN PRICK UP TO CALVES B/L, PROPRIOCEPTION , VIBRATION ARE INTACT B/L DEEP TENDON REFLEXES: 2+ THROUGHOUT. COORDINATION: FINGER TO NOSE IS INTACT. HEEL TO BACA IS INTACT GAIT: MILD WIDE BASED/ LABS: REVIEWED BY THE CHART. ASSESSMENT AND PLAN: THIS IS A 71 YEAR OLD MAN WITH HISTORY HTN, HLD, PE ON XERALTO, BPH WHO PRESENTED WITH INTERMITTENT DIZZINESS IN TERMS OF SPINNING SENSATION OF THE ROOM WITHOUT NAUSEA. HE FELT UNBALANCED ON HIS FEET. MRI BRAIN SHOWED NO ACUTE INTRACRANIAL ABNORMALITY. NO FOCAL WEAKNESS IN THE EXTREMITIES. IMPRESSION: DIZZINESS IS MORE POSITIONAL VERTIGO SUPERIMPOSED UNDERLYING DECONDITIONED STATE. 1. ASA 81 MG, STATIN AND XERALTO FOR STROKE PREVENTION 2. C/W XERALTO SINCE HIS HISTORY OF PE. 3. PHYSICAL THERAPY AND VESTIBULAR THERAPY OUTPATIENT. NEUROLOGICALLY STABLE THANK YOU. Rai ALCANTARA MD Past Patient History - Infectious Disease Hx of Infectious Diseases: None - Tetanus Immunizations Tetanus Immunization: Unknown - Past Medical History & Family History Past Medical History?: Yes - Past Social History Smoking Status: Never Smoked Chewing Tobacco Use: No Cigar Use: No Alcohol: Occasional Drugs: Denies Home Situation {Lives}: Alone - CARDIAC Hx Cardiac Disorders: Yes Hx Hypercholesterolemia: Yes - PULMONARY Hx Respiratory Disorders: No Other/Comment: Pulmonary embolism - NEUROLOGICAL Hx Neurological Disorder: No - HEENT Hx HEENT Problems: No - RENAL Hx Chronic Kidney Disease: No - ENDOCRINE/METABOLIC Hx Endocrine Disorders: No - HEMATOLOGICAL/ONCOLOGICAL Hx Anemia: Yes - INTEGUMENTARY Hx Dermatological Problems: Yes Other/Comment: coagulopathy - MUSCULOSKELETAL/RHEUMATOLOGICAL Hx Musculoskeletal Disorders: Yes Hx Falls: No Other/Comment: bilateral foot surgery/degenerative joint disease. - GASTROINTESTINAL Hx Gastrointestinal Disorders: Yes Hx Gastritis: Yes Hx Pancreatitis: Yes - GENITOURINARY/GYNECOLOGICAL Hx Genitourinary Disorders: Yes Hx Prostate Problems: Yes - PSYCHIATRIC Hx Psychophysiologic Disorder: Yes Hx Depression: Yes Hx Substance Use: No - SURGICAL HISTORY Hx Surgeries: Yes Other/Comment: bilateral foot - ANESTHESIA Hx Anesthesia: Yes Hx Anesthesia Reactions: No Hx Malignant Hyperthermia: No Meds Home Medications: Home Medication List Medication Instructions Recorded Confirmed Type Meclizine [Meclizine*] 25 mg PO BID #14 tab 10/27/16 Rx Allergies/Adverse Reactions: Allergies Allergy/AdvReac Type Severity Reaction Status Date / Time No Known Allergies Allergy Verified 10/27/16 13:50 - Medications Medications: Current Medications Aspirin (Ecotrin) 81 mg PO DAILY [facility] Last Admin: 10/28/16 10:26 Dose: 81 mg Famotidine (Pepcid) 40 mg PO DAILY [facility] Last Admin: 10/28/16 10:26 Dose: 40 mg Ferrous Sulfate (Feosol) 325 mg PO DAILY [facility] Last Admin: 10/28/16 10:26 Dose: 325 mg Rivaroxaban (Xarelto) 20 mg PO DAILY [facility] Last Admin: 10/28/16 10:26 Dose: 20 mg Rosuvastatin Calcium (Crestor) 10 mg PO HS [facility] Last Admin: 10/27/16 22:15 Dose: 10 mg Tamsulosin HCl (Flomax) 0.4 mg PO DAILY [facility] Last Admin: 10/28/16 10:26 Dose: 0.4 mg Results - Vital Signs Recent Vital Signs: Last Vital Signs Temp 98.0 F 07/10/17 16:11 Pulse 59 L 10/28/16 16:11 Resp 20 10/28/16 16:11 BP 126/70 10/28/16 16:11 Pulse Ox 99 10/28/16 16:11 - Labs Result Diagrams: 10/28/16 10:42 10/28/16 10:42 Labs: Laboratory Results - last 24 hr 10/28/16 10/28/16 10:42 10:42 WBC 4.1 L RBC 3.86 L Hgb 12.4 Hct 37.2 MCV 96.3 H MCH 32.2 H MCHC 33.4 RDW 12.5 Plt Count 146 MPV 7.0 L Sodium 141 Potassium 3.8 Chloride 107 Carbon Dioxide 27 Anion Gap 11 BUN 10 Creatinine 1.0 Est GFR ( Amer) > 60 Est GFR (Non-Af Amer) > 60 Random Glucose 97 Calcium 8.7 Phosphorus 2.6 Magnesium 2.1 Total Creatine Kinase 86 CK-MB (Mass) 0.43 Troponin I, Quant < 0.0120 Triglycerides 132 D Cholesterol 158 LDL Cholesterol Direct 96 HDL Cholesterol 43
--- NOTE | 2016-10-28 16:59 | CP.PCM.PN ---
Subjective - Date & Time of Evaluation Date of Evaluation: 10/28/16 Time of Evaluation: 13:40 - Subjective Subjective: clinically same Objective - Vital Signs/Intake and Output Vital Signs (last 24 hours): Temp Pulse Resp BP Pulse Ox 98.0 F 59 L 20 126/70 99 10/28/16 16:11 10/28/16 16:11 10/28/16 16:11 10/28/16 16:11 10/28/16 16:11 Intake and Output: 10/28/16 10/28/16 06:59 18:59 Intake Total 240 400 Balance 240 400 - Medications Medications: Current Medications Aspirin (Ecotrin) 81 mg PO DAILY [facility] Last Admin: 10/28/16 10:26 Dose: 81 mg Famotidine (Pepcid) 40 mg PO DAILY [facility] Last Admin: 10/28/16 10:26 Dose: 40 mg Ferrous Sulfate (Feosol) 325 mg PO DAILY [facility] Last Admin: 10/28/16 10:26 Dose: 325 mg Rivaroxaban (Xarelto) 20 mg PO DAILY [facility] Last Admin: 10/28/16 10:26 Dose: 20 mg Rosuvastatin Calcium (Crestor) 10 mg PO HS [facility] Last Admin: 10/27/16 22:15 Dose: 10 mg Tamsulosin HCl (Flomax) 0.4 mg PO DAILY [facility] Last Admin: 10/28/16 10:26 Dose: 0.4 mg - Labs Labs: 10/28/16 10:42 10/28/16 10:42 - Constitutional Appears: Well - Head Exam Head Exam: ATRAUMATIC, NORMAL INSPECTION, NORMOCEPHALIC - Eye Exam Eye Exam: EOMI, Normal appearance, PERRL Pupil Exam: NORMAL ACCOMODATION, PERRL - ENT Exam ENT Exam: Mucous Membranes Moist, Normal Exam - Neck Exam Neck Exam: Full ROM, Normal Inspection. absent: Lymphadenopathy - Respiratory Exam Respiratory Exam: Decreased Breath Sounds - Cardiovascular Exam Cardiovascular Exam: REGULAR RHYTHM, +S1, +S2 - GI/Abdominal Exam GI & Abdominal Exam: Soft, Diminished Bowel Sounds - Rectal Exam Rectal Exam: Deferred
--- NOTE | 2016-10-28 17:12 | CP.PCM.PN ---
Subjective - Date & Time of Evaluation Date of Evaluation: 10/28/16 Time of Evaluation: 16:40 - Subjective Subjective: dizziness improved MRI - no evidence of CVA Objective - Vital Signs/Intake and Output Vital Signs (last 24 hours): Temp Pulse Resp BP Pulse Ox 98.0 F 59 L 20 126/70 99 10/28/16 16:11 10/28/16 16:11 10/28/16 16:11 10/28/16 16:11 10/28/16 16:11 Intake and Output: 10/28/16 10/28/16 06:59 18:59 Intake Total 240 400 Balance 240 400 - Medications Medications: Current Medications Aspirin (Ecotrin) 81 mg PO DAILY [facility] Last Admin: 10/28/16 10:26 Dose: 81 mg Famotidine (Pepcid) 40 mg PO DAILY [facility] Last Admin: 10/28/16 10:26 Dose: 40 mg Ferrous Sulfate (Feosol) 325 mg PO DAILY [facility] Last Admin: 10/28/16 10:26 Dose: 325 mg Rivaroxaban (Xarelto) 20 mg PO DAILY [facility] Last Admin: 10/28/16 10:26 Dose: 20 mg Rosuvastatin Calcium (Crestor) 10 mg PO HS [facility] Last Admin: 10/27/16 22:15 Dose: 10 mg Tamsulosin HCl (Flomax) 0.4 mg PO DAILY [facility] Last Admin: 10/28/16 10:26 Dose: 0.4 mg - Labs Labs: 10/28/16 10:42 10/28/16 10:42 - Constitutional Appears: Well, No Acute Distress - Head Exam Head Exam: ATRAUMATIC, NORMAL INSPECTION, NORMOCEPHALIC - Eye Exam Eye Exam: EOMI, Normal appearance, PERRL Pupil Exam: NORMAL ACCOMODATION, PERRL - ENT Exam ENT Exam: Mucous Membranes Moist, Normal Exam - Neck Exam Neck Exam: Full ROM, Normal Inspection. absent: Lymphadenopathy - Respiratory Exam Respiratory Exam: Clear to Ausculation Bilateral, NORMAL BREATHING PATTERN - Cardiovascular Exam Cardiovascular Exam: REGULAR RHYTHM, +S1, +S2. absent: Murmur - GI/Abdominal Exam GI & Abdominal Exam: Soft, Normal Bowel Sounds. absent: Tenderness - Rectal Exam Rectal Exam: Deferred - Extremities Exam Extremities Exam: Full ROM, Normal Capillary Refill, Normal Inspection. absent : Joint Swelling, Pedal Edema - Back Exam Back Exam: NORMAL INSPECTION - Neurological Exam Neurological Exam: Alert, Awake, CN II-XII Intact, Normal Gait, Oriented x3 - Psychiatric Exam Psychiatric exam: Normal Affect, Normal Mood - Skin Skin Exam: Dry, Intact, Normal Color, Warm Assessment and Plan (1) Dizziness Assessment & Plan: possibly 2' to BPV echo reviewed normal EF with mild pulmonary HTN Status: Acute (2) Chest pain Assessment & Plan: 2' to pleurisy RV mildly dilated with mild pulmonary HTN Status: Acute (3) Pulmonary embolism Assessment & Plan: chronic cont xarelto Status: Acute (4) Dyslipidemia Assessment & Plan: cont statins Status: Acute
[2016-10-29 06:43] LABS: ALBUMIN 3.5 g/dL (3.5-5.0)
[2016-10-29 06:46] LABS: AST/SGOT 23 U/L (17-59); GFR AFRICAN-AMERICAN > 60; GFR NON-AFRICAN AMERICAN > 60
[2016-10-29 06:47] LABS: ALB/GLOB RATIO 1.2 (1.0-2.1); ALT/SGPT 23 U/L (21-72); BLOOD UREA NITROGEN 15 mg/dL (9-20); CALCIUM 8.6 mg/dl (8.6-10.4)
[2016-10-29 06:48] LABS: HEMOGLOBIN 12.9 g/dL (12.0-18.0); MEAN CELL VOLUME 95.1 fL (80.0-94.0); MEAN CORPUSCULAR HEMOGLOBIN 32.1 pg (27.0-31.0); MEAN CORPUSCULAR HGB CONC 33.8 g/dL (33.0-37.0); MEAN PLATELET VOLUME 7.5 fL (7.2-11.7); RBC 4.03 Mil/uL (4.40-5.90); RED CELL DISTRIBUTION WIDTH 12.6 % (11.5-14.5); WHITE BLOOD COUNT 6.4 K/uL (4.8-10.8)
--- NOTE | 2016-10-29 10:15 | CP.PCM.PN ---
Subjective - Date & Time of Evaluation Date of Evaluation: 10/29/16 Time of Evaluation: 10:00 - Subjective Subjective: dizziness resolved all w/u -ve Objective - Vital Signs/Intake and Output Vital Signs (last 24 hours): Temp Pulse Resp BP Pulse Ox 97.3 F L 76 17 127/76 98 10/29/16 07:10 10/29/16 09:48 10/29/16 07:10 10/29/16 09:48 10/29/16 07:10 Intake and Output: 10/29/16 10/29/16 06:59 18:59 Intake Total 120 Balance 120 - Medications Medications: Current Medications Aspirin (Ecotrin) 81 mg PO DAILY [facility] Last Admin: 10/29/16 09:49 Dose: 81 mg Famotidine (Pepcid) 40 mg PO DAILY [facility] Last Admin: 10/29/16 09:50 Dose: 40 mg Ferrous Sulfate (Feosol) 325 mg PO DAILY [facility] Last Admin: 10/29/16 09:49 Dose: 325 mg Rivaroxaban (Xarelto) 20 mg PO DAILY [facility] Last Admin: 10/29/16 09:50 Dose: 20 mg Rosuvastatin Calcium (Crestor) 10 mg PO HS [facility] Last Admin: 10/28/16 21:42 Dose: 10 mg Tamsulosin HCl (Flomax) 0.4 mg PO DAILY [facility] Last Admin: 10/29/16 09:50 Dose: 0.4 mg - Labs Labs: 10/29/16 06:11 10/29/16 06:11 - Constitutional Appears: Well, No Acute Distress - Head Exam Head Exam: ATRAUMATIC, NORMAL INSPECTION, NORMOCEPHALIC - Eye Exam Eye Exam: EOMI, Normal appearance, PERRL Pupil Exam: NORMAL ACCOMODATION, PERRL - ENT Exam ENT Exam: Mucous Membranes Moist, Normal Exam - Neck Exam Neck Exam: Full ROM, Normal Inspection. absent: Lymphadenopathy - Respiratory Exam Respiratory Exam: Clear to Ausculation Bilateral, NORMAL BREATHING PATTERN - Cardiovascular Exam Cardiovascular Exam: REGULAR RHYTHM, +S1, +S2, Murmur - GI/Abdominal Exam GI & Abdominal Exam: Soft, Normal Bowel Sounds. absent: Tenderness - Rectal Exam Rectal Exam: Deferred - Extremities Exam Extremities Exam: Full ROM, Normal Capillary Refill, Normal Inspection. absent : Joint Swelling, Pedal Edema - Back Exam Back Exam: NORMAL INSPECTION - Neurological Exam Neurological Exam: Alert, Awake, CN II-XII Intact, Normal Gait, Oriented x3 - Psychiatric Exam Psychiatric exam: Normal Affect, Normal Mood - Skin Skin Exam: Dry, Intact, Normal Color, Warm Assessment and Plan (1) Dizziness Assessment & Plan: 2' to BPH all w/u -ve meclizine prn Status: Acute (2) Chest pain Assessment & Plan: 2' to pleurisy nsaids prn outpt ETT Status: Acute (3) Pulmonary embolism Assessment & Plan: cont with xarelto Status: Acute (4) Dyslipidemia Assessment & Plan: cont wth statins Status: Acute
--- NOTE | 2016-10-29 11:02 | CP.PCM.PN ---
Subjective - Date & Time of Evaluation Date of Evaluation: 10/29/16 Time of Evaluation: 11:25 - Subjective Subjective: PGY-2 Medicine note- Dr. Rodriguez's service Pt seen and examined in no acute distress. Patient with no acute complaints. Patient denies dizziness at this time. Patient to be discharged home today. He denies subjective fevers, chills, nausea, vomiting, diarrhea, constipation at this time. Objective - Vital Signs/Intake and Output Vital Signs (last 24 hours): Temp Pulse Resp BP Pulse Ox 97.3 F L 76 17 127/76 98 10/29/16 07:10 10/29/16 09:48 10/29/16 07:10 10/29/16 09:48 10/29/16 07:10 Intake and Output: 10/29/16 10/29/16 06:59 18:59 Intake Total 120 Balance 120 - Medications Medications: Current Medications Aspirin (Ecotrin) 81 mg PO DAILY [facility] Last Admin: 10/29/16 09:49 Dose: 81 mg Famotidine (Pepcid) 40 mg PO DAILY [facility] Last Admin: 10/29/16 09:50 Dose: 40 mg Ferrous Sulfate (Feosol) 325 mg PO DAILY [facility] Last Admin: 10/29/16 09:49 Dose: 325 mg Rivaroxaban (Xarelto) 20 mg PO DAILY [facility] Last Admin: 10/29/16 09:50 Dose: 20 mg Rosuvastatin Calcium (Crestor) 10 mg PO HS [facility] Last Admin: 10/28/16 21:42 Dose: 10 mg Tamsulosin HCl (Flomax) 0.4 mg PO DAILY [facility] Last Admin: 10/29/16 09:50 Dose: 0.4 mg - Labs Labs: 10/29/16 06:11 10/29/16 06:11 - Constitutional Appears: Non-toxic, No Acute Distress - Head Exam Head Exam: ATRAUMATIC, NORMAL INSPECTION, NORMOCEPHALIC - Eye Exam Eye Exam: EOMI, Normal appearance, PERRL Pupil Exam: NORMAL ACCOMODATION, PERRL - ENT Exam ENT Exam: Mucous Membranes Moist - Neck Exam Neck Exam: Full ROM - Respiratory Exam Respiratory Exam: NORMAL BREATHING PATTERN. absent: Wheezes - Cardiovascular Exam Cardiovascular Exam: +S1, +S2 - GI/Abdominal Exam GI & Abdominal Exam: Soft, Normal Bowel Sounds - Extremities Exam Extremities Exam: Full ROM - Back Exam Back Exam: Full ROM - Neurological Exam Neurological Exam: Alert, Awake, Oriented x3 - Psychiatric Exam Psychiatric exam: Normal Affect, Normal Mood Assessment and Plan - Assessment and Plan (Free Text) Assessment: Dizziness - Neurology, Dr. Loco is consulted. Recommend MRI of brain - MRI of brain- acute intracranial hemorrhage or infact; mild chronic appearing white matter and basal nuclei ischemic changes; mild generalized volume loss. - Carotid US - results do not suggest significant stenosis of carotid arteries. Preliminary echo result showed EF of 76% HLD - Continue Crestor 10 mg po HS History of PE -Chronic chest pain noted likely secondary to PE -Troponins negative x2 -Continue Xarelto 20 mg po HS BPH -Continue Flomax -Urologist, Dr. Gallagher is consulted Patient to be discharged home. ARRANGEMENTS MADE FOR HOME PT AND HOME VESTIBULAR TRAINING. TO CONTINUE SAME HOME MEDS AND F/U WITH PMD, DR. MCQUEEN. RX FOR CANE GIVEN TO PT. NO FURTHER ORDERS. Case discussed with attending, Dr. Rodriguez
--- NOTE | 2016-10-29 11:39 | VASCLAB ---
PROCEDURE: HISTORY: dizziness COMPARISON: None available. TECHNIQUE: Grayscale and duplex Doppler evaluation of the cervical carotid and vertebral arteries were performed. The common carotid, carotid bifurcations and cervical Internal Carotid Artery (ICA) and proximal External Carotid Artery (ECA) were evaluated. The vertebral arteries were evaluated for gross patency and flow direction. Report prepared by Sergei Casiano, BS, RVT FINDINGS: RIGHT CAROTID ARTERIES: 1. Common Carotid Artery: No significant focal plaque formation of the right common carotid artery. Maximum Peak Systolic velocity: 61 cm/sec: End-diastolic velocity 15 cm/sec. 2. Carotid Bifurcation: plaque formation. Maximum Peak Systolic velocity: 51 cm/sec: End-diastolic velocity 11 cm/sec. 3. Internal Carotid Artery: Plaque description: 3.1. Proximal Segment: Peak systolic velocity 70 cm/sec: End-diastolic velocity 18 cm/sec - % stenosis 0-15% 3.2. Middle Segment: Peak systolic velocity 89 cm/sec: End-diastolic velocity 22 cm/sec - % stenosis 0-15% 3.3. Distal Segment: Peak systolic velocity 99 cm/sec: End-diastolic velocity 26 cm/sec - % stenosis 0-15% 4. External Carotid Artery: No significant focal plaque formation. Peak systolic velocity 90 cm/sec 5. ICA/CCA Ratio: 1.6 LEFT CAROTID ARTERIES: 1. Common Carotid Artery: No significant focal plaque formation of the left common carotid artery. Maximum Peak Systolic velocity: 71 cm/sec: End-diastolic velocity 13 cm/sec. 2. Carotid Bifurcation: plaque formation. Maximum Peak Systolic velocity: 65 cm/sec: End-diastolic velocity 13 cm/sec. 3. Internal Carotid Artery: Plaque description: 3.1. Proximal Segment: Peak systolic velocity 79 cm/sec: End-diastolic velocity 18 cm/sec - % stenosis 0-15% 3.2. Middle Segment: Peak systolic velocity 66 cm/sec: End-diastolic velocity 19 cm/sec - % stenosis 0-15% 3.3. Distal Segment: Peak systolic velocity 90 cm/sec: End-diastolic velocity 21 cm/sec - % stenosis 0-15% 4. External Carotid Artery: No significant focal plaque formation. Peak systolic velocity 91 cm/sec 5. ICA/CCA Ratio: 1.3 VERTEBRAL ARTERIES: 1. Right Vertebral Artery: The right vertebral artery flow direction is antegrade. 2. Left Vertebral Artery: The left vertebral artery flow direction is antegrade. OTHER FINDINGS: 1. Right Brachial Blood pressure: 140 mmHg. 2. Left Brachial Blood pressure: 140 mmHg. IMPRESSION: RIGHT: Duplex scan does not suggest hemodynamically significant stenosis of the right extracranial carotid arteries. LEFT: Duplex scan does not suggest hemodynamically significant stenosis of the left extracranial carotid arteries.
--- NOTE | 2016-10-29 11:46 | CP.PCM.PN ---
Subjective - Date & Time of Evaluation Date of Evaluation: 10/29/16 Time of Evaluation: 13:40 - Subjective Subjective: clinically same Objective - Vital Signs/Intake and Output Vital Signs (last 24 hours): Temp Pulse Resp BP Pulse Ox 97.3 F L 76 17 127/76 98 10/29/16 07:10 10/29/16 09:48 10/29/16 07:10 10/29/16 09:48 10/29/16 07:10 Intake and Output: 10/29/16 10/29/16 06:59 18:59 Intake Total 120 Balance 120 - Medications Medications: Current Medications Aspirin (Ecotrin) 81 mg PO DAILY [facility] Last Admin: 10/29/16 09:49 Dose: 81 mg Famotidine (Pepcid) 40 mg PO DAILY [facility] Last Admin: 10/29/16 09:50 Dose: 40 mg Ferrous Sulfate (Feosol) 325 mg PO DAILY [facility] Last Admin: 10/29/16 09:49 Dose: 325 mg Rivaroxaban (Xarelto) 20 mg PO DAILY [facility] Last Admin: 10/29/16 09:50 Dose: 20 mg Rosuvastatin Calcium (Crestor) 10 mg PO HS [facility] Last Admin: 10/28/16 21:42 Dose: 10 mg Tamsulosin HCl (Flomax) 0.4 mg PO DAILY [facility] Last Admin: 10/29/16 09:50 Dose: 0.4 mg - Labs Labs: 10/29/16 06:11 10/29/16 06:11 - Constitutional Appears: Well - Head Exam Head Exam: ATRAUMATIC, NORMAL INSPECTION, NORMOCEPHALIC - Eye Exam Eye Exam: EOMI, Normal appearance, PERRL Pupil Exam: NORMAL ACCOMODATION, PERRL - ENT Exam ENT Exam: Mucous Membranes Moist, Normal Exam - Neck Exam Neck Exam: Full ROM, Normal Inspection. absent: Lymphadenopathy - Respiratory Exam Respiratory Exam: Decreased Breath Sounds - Cardiovascular Exam Cardiovascular Exam: REGULAR RHYTHM, +S1, +S2 - GI/Abdominal Exam GI & Abdominal Exam: Soft, Diminished Bowel Sounds - Rectal Exam Rectal Exam: Deferred
--- NOTE | 2016-10-29 13:15 | CP.PCM.PN ---
Subjective - Date & Time of Evaluation Date of Evaluation: 10/29/16 Time of Evaluation: 13:15 - Subjective Subjective: PT SEEN BY DR. MANDUJANO AND CLEARED FOR D/C HOME TODAY/ ARRANGEMENTS MADE FOR HOME PT AND HOME VESTIBULAR TRAINING. TO CONTINUE SAME HOME MEDS AND F/U WITH PMD, DR. MCQUEEN. RX FOR CANE GIVEN TO PT. NO FURTHER ORDERS. Objective - Vital Signs/Intake and Output Vital Signs (last 24 hours): Temp Pulse Resp BP Pulse Ox 97.3 F L 76 17 127/76 98 10/29/16 07:10 10/29/16 09:48 10/29/16 07:10 10/29/16 09:48 10/29/16 07:10 Intake and Output: 10/29/16 10/29/16 06:59 18:59 Intake Total 120 Balance 120 - Medications Medications: Current Medications Aspirin (Ecotrin) 81 mg PO DAILY [facility] Last Admin: 10/29/16 09:49 Dose: 81 mg Famotidine (Pepcid) 40 mg PO DAILY [facility] Last Admin: 10/29/16 09:50 Dose: 40 mg Ferrous Sulfate (Feosol) 325 mg PO DAILY [facility] Last Admin: 10/29/16 09:49 Dose: 325 mg Rivaroxaban (Xarelto) 20 mg PO DAILY [facility] Last Admin: 10/29/16 09:50 Dose: 20 mg Rosuvastatin Calcium (Crestor) 10 mg PO HS [facility] Last Admin: 10/28/16 21:42 Dose: 10 mg Tamsulosin HCl (Flomax) 0.4 mg PO DAILY [facility] Last Admin: 10/29/16 09:50 Dose: 0.4 mg - Labs Labs: 10/29/16 06:11 10/29/16 06:11
[2016-10-29 13:59] VITALS: PULSE 100
[2016-10-29 14:36] VITALS: BP 110/79; RESP 20; TEMP 97.7; O2SAT 97
--- NOTE | 2016-10-30 11:00 | CARD ---
APPROVED REPORT EXAM: Two-dimensional and M-mode echocardiogram with Doppler and color Doppler. Other Information Quality : GoodRhythm : NSR INDICATION Dizziness and Vertigo Chest Pain RISK FACTORS Hyperlipidemia M-Mode DIMENSIONS RVDd1.52 (2.1-3.2cm)Left Atrium (MM)4.06 (2.5-4.0cm) IVSd1.05 (0.7-1.1cm)Aortic Root4.14 (2.2-3.7cm) LVDd5.39 (4.0-5.6cm)Aortic Cusp Exc.2.66 (1.5-2.0cm) PWd1.02 (0.7-1.1cm)FS (%) 45 % LVDs2.97 (2.0-3.8cm)LVEF (%)76 (>50%) Aortic Valve AI P 1/2 Esng261oc Mitral Valve MV E Javwxvlz704.6cm/sMV A Cehngzhr60.0cm/sE/A ratio1.3 TDI E/Lateral E'0.0E/Medial E'0.0 Tricuspid Valve TR Peak Vughjxth559xv/sTR Peak Gr.[id number] LEFT VENTRICLE The left ventricle is normal size. There is normal left ventricular wall thickness. The left ventricular function is normal. The left ventricular ejection fraction is within the normal range. No regional wall motion abnormalities noted. The left ventricular diastolic function is normal. No left ventricle thrombus noted on this study. There is no ventricular septal defect visualized. There is no left ventricular aneurysm. There is no mass noted in the left ventricle. RIGHT VENTRICLE The right ventricle is normal size. There is normal right ventricular wall thickness. The right ventricular systolic function is normal. AORTIC VALVE The aortic valve is normal in structure. There is mild aortic regurgitation. There is no aortic valvular stenosis. There is no aortic valvular vegetation. MITRAL VALVE The mitral valve is normal in structure. There is no evidence of mitral valve prolapse. There is no mitral valve stenosis. Mitral regurgitation is trace to mild. TRICUSPID VALVE The tricuspid valve is normal in structure. There is mild tricuspid regurgitation. PAP 35-40 [facility] P[facility] There is no tricuspid valve prolapse or vegetation. There is no tricuspid valve stenosis. PULMONIC VALVE The pulmonary valve is normal in structure. There is mild pulmonic valvular regurgitation. There is no pulmonic valvular stenosis. GREAT VESSELS The aortic root is normal in size. The ascending aorta is normal in size. The pulmonary artery is normal. The IVC is normal in size and collapses >50% with inspiration. <Conclusion> The left ventricular ejection fraction is within the normal range. The left ventricular diastolic function is normal. There is mild aortic regurgitation. Mitral regurgitation is trace to mild. The tricuspid valve is normal in structure. There is mild tricuspid regurgitation. PAP 35-40 mmHg [facility] PHTN
--- NOTE | 2016-10-30 11:26 | CARD ---
APPROVED REPORT EKG Measurement Heart [id number] <Conclusion> Normal sinus rhythm Minimal voltage criteria for LVH, may be normal variant Borderline ECG
== END 2016-10-29 13:48 | disposition home or self-care (01) | DRG 149 ==
LOC: C.ER 13:45 → C.9E 15:28 → C.6T 18:18 → OBSVTOIN 10-28 21:25
PROVIDERS: ADMIT Internal Medicine Nephrology; ATTEND Internal Medicine Nephrology
DX: H81.10 Benign paroxysmal vertigo, unspecified ear (principal); I26.99 Other pulmonary embolism without acute cor pulmonale; F32.9 Major depressive disorder, single episode, unspecified; E78.00 Pure hypercholesterolemia, unspecified; E78.5 Hyperlipidemia, unspecified; M19.072 Primary osteoarthritis, left ankle and foot; M19.071 Primary osteoarthritis, right ankle and foot; I25.10 Atherosclerotic heart disease of native coronary artery without angina pectoris; I10 Essential (primary) hypertension; N40.0 Benign prostatic hyperplasia without lower urinary tract symptoms; I27.2 Other secondary pulmonary hypertension

== ENCOUNTER 2016-11-15 21:35 | Emergency (ER) | payer OTHER ==
[2016-11-15 21:35] VITALS: BMI 30.7
[2016-11-15 21:57] VITALS: RESP 16; O2SAT 98
[2016-11-15 22:49] LABS: BASO % 0.6 % (0.0-2.0); EOS % 0.5 % (0.0-4.0); HEMATOCRIT 36.9 % (35.0-51.0); LYMPH # 1.2 K/uL (1.0-4.3); LYMPH % 24.3 % (20.0-40.0); MEAN CORPUSCULAR HGB CONC 33.7 g/dL (33.0-37.0); MEAN PLATELET VOLUME 7.6 fL (7.2-11.7); MONO # 0.4 K/uL (0.0-0.8); RED CELL DISTRIBUTION WIDTH 12.6 % (11.5-14.5); WHITE BLOOD COUNT 5.1 K/uL (4.8-10.8)
--- NOTE | 2016-11-15 22:50 | C.PDOC ---
History Of Present Illness 71 year old male who presents to the ER with a complaint of dizziness that he describes as a spinning room sensation. Denies headache, nausea, or vomiting. Chief Complaint (Nursing): Dizziness/Lightheaded History Per: Patient History/Exam Limitations: no limitations Onset/Duration Of Symptoms: Hrs Current Symptoms Are (Timing): Still Present Activity At Onset Of Symptoms: Standing Seizure Or Post-ictal Symptoms: None Fall Associated With With Symptoms: No Recent travel outside of the [place]: No - Symptoms Of CVA Associated Symptoms: denies: Impaired Speech, Seizure Activity, New Vision Deficit(Left), New Vision Deficit(Right), Decreased Ability To Walk, New Confusion, Other Recent Aspirin Use: Unknown Current Coumadin Use?: Unknown Recent Head Trauma: No Past Medical History Reviewed: Historical Data, Nursing Documentation, Vital Signs Vital Signs: Last Vital Signs Temp 97.8 F 11/15/16 21:54 Pulse 97 H 11/15/16 21:54 Resp 16 11/15/16 21:54 BP 115/77 11/15/16 21:54 Pulse Ox 98 11/16/16 01:03 - Medical History PMH: Anemia, Back Problems, Benign Prostatic Hyperplasia, Depression, Gastritis , HTN, Hypercholesterolemia, Pancreatitis, Pulmonary Embolism (on xarelta) Surgical History: Back Surgery - [facility] VACCINATION NEC (08/17/14) Family History: States: Unknown Family Hx - Social History Hx Tobacco Use: No Hx Alcohol Use: No Hx Substance Use: No - Immunization History Hx Tetanus Toxoid Vaccination: Yes Hx Influenza Vaccination: Yes (2016) Hx Pneumococcal Vaccination: No Review Of Systems Gastrointestinal: Negative for: Nausea, Vomiting Neurological: Positive for: Dizziness. Negative for: Headache Physical Exam - Physical Exam Appears: Non-toxic Skin: Normal Color, Warm, Dry Head: Atraumatic, Normacephalic Eye(s): bilateral: Normal Inspection, PERRL, EOMI Oral Mucosa: Moist Chest: Symmetrical, No Tenderness Cardiovascular: Rhythm Regular, No Murmur Respiratory: Normal Breath Sounds, No Rales, No Rhonchi, No Wheezing Gastrointestinal/Abdominal: Soft, No Tenderness Neurological/Psych: Oriented x3, Normal Speech, Normal Cognition ED Course And Treatment - Laboratory Results Result Diagrams: 11/15/16 22:43 11/15/16 22:43 ECG: Interpreted By Me, Viewed By Me ECG Rhythm: Sinus Bradycardia ECG Interpretation: Normal, No Acute Changes Interpretation Of ECG: Sinus bradycardia, otherwise normal tracings. Rate From EC O2 Sat by Pulse Oximetry: 98 (Room air) Pulse Ox Interpretation: Normal Progress Note: Head CT, EKG, and blood work ordered. Antivert administered. Disposition Counseled Patient/Family Regarding: Diagnosis - Disposition Referrals: [facility] [Outside] Disposition: HOME/ ROUTINE Disposition Time: 01:03 Condition: STABLE Prescriptions: Meclizine [Antivert] 12.5 mg PO Q6 #20 tab Instructions: Vertigo (ED), Dizziness (ED) Forms: [facility] (Wolof), Gen Discharge Inst Khmer Print Language: UKRAINIAN - POA Present On Arrival: None - Clinical Impression Clinical Impression: Vertigo, Dizziness - Scribe Statement The provider has reviewed the documentation as recorded by the Scribconnie Hussein All medical record entries made by the Scribe were at my direction and personally dictated by me. I have reviewed the chart and agree that the record accurately reflects my personal performance of the history, physical exam, medical decision making, and the department course for this patient. I have also personally directed, reviewed, and agree with the discharge instructions and disposition.
[2016-11-15 22:57] LABS: CHLORIDE 103 mmol/L (98-107); SODIUM 140 mmol/L (132-148)
[2016-11-15 22:58] LABS: INR 1.2; POTASSIUM 4.1 mmol/L (3.6-5.2)
[2016-11-15 23:00] LABS: ALB/GLOB RATIO 1.2 (1.0-2.1); ALKALINE PHOSPHATASE 59 U/L (38-126); AST/SGOT 24 U/L (17-59); BILIRUBIN,TOTAL 0.8 mg/dL (0.2-1.3); CARBON DIOXIDE 25 mmol/L (22-30); GFR AFRICAN-AMERICAN > 60; TOTAL PROTEIN 6.7 g/dL (6.3-8.3)
[2016-11-15 23:01] LABS: ALT/SGPT 21 U/L (21-72); BLOOD UREA NITROGEN 11 mg/dL (9-20); CALCIUM 8.5 mg/dl (8.6-10.4); GLUCOSE,RANDOM 107 mg/dL (75-110)
--- NOTE | 2016-11-16 00:39 | CT ---
EXAM: CT Head Without Intravenous Contrast CLINICAL HISTORY: 71 years old, male; Pain; Headache; Patient HX: 10-27-16 TECHNIQUE: Axial computed tomography images of the head/brain without intravenous contrast. This CT exam was performed using one or more of the following dose reduction techniques: automated exposure control, adjustment of the mA and/or kV according to patient size, and/or use of iterative reconstruction technique. COMPARISON: No relevant prior studies available. FINDINGS: Brain: No acute intracranial hemorrhage. Age-appropriate periventricular white matter disease. No edema. Basal ganglia calcifications are present. The patchy low attenuation within the anterior right temporal lobe is more symmetric on the current study, than on prior examination suggesting chronic microvascular ischemic disease. Ventricles: Age-appropriate ventriculomegaly. Bones: No acute displaced fracture. Sinuses: Unremarkable as visualized. No acute sinusitis. Mastoid air cells: Unremarkable as visualized. No mastoid effusion. IMPRESSION: No acute intracranial hemorrhage, or suspicious mass effect. Basal ganglia mineralization is prominent considering the patient's age. Still, this may be physiologic. Other considerations are prior infection, thyroid/parathyroid disease or inherited metabolic conditions. Acute infarction may be CT occult within first 24 hours. If a focal deficit persists, consider followup CT or MRI for further evaluation.
[2016-11-16 01:16] VITALS: BP 112/73; PULSE 95; TEMP 97
--- NOTE | 2016-11-25 08:54 | CARD ---
APPROVED REPORT EKG Measurement Heart [id number] RI [id number] <Conclusion> Sinus bradycardia left axis deviation Minimal voltage criteria for LVH, may be normal variant Borderline ECG
== END 2016-11-16 01:16 | disposition home or self-care (01) ==
LOC: C.ER 21:35
DX: R42 Dizziness and giddiness (principal); N40.0 Benign prostatic hyperplasia without lower urinary tract symptoms; I10 Essential (primary) hypertension; E78.00 Pure hypercholesterolemia, unspecified